=== PATIENT | female | born 1980 | race Caucasian/White ===

== ENCOUNTER → 2018-02-06 | Outpatient (CLI) | payer OTHER | LOC: BMCIMAGING 17:21 | PROVIDERS: ATTEND Family Medicine | DX: M79.671 Pain in right foot (principal) ==

== ENCOUNTER → 2018-08-12 | Outpatient (CLI) | payer OTHER | LOC: BMCIMAGING 12:09 | PROVIDERS: ATTEND Family Medicine | DX: S82.401A Unspecified fracture of shaft of right fibula, initial encounter for closed fracture (principal) ==